=== PATIENT | female | born 2000 | race Caucasian/White ===

== ENCOUNTER 2023-10-30 18:22 | Observation (INO) | payer OTHER, SELFPAY ==
[2023-10-30 15:39] VITALS: BP 116/71
[2023-10-30 16:04] LABS: % Basophils 0.4 % (0-2); % Eosinophils 2.5 % (0-6); % Immature Granulocytes 0.6 % (0-0.5); % Lymphocytes 15.6 % (20.5-51.1); % Monocytes 6.8 % (1.7-9.3); % Neutrophils 74.1 % (42.2-75.2); Absolute Eosinophils 0.2 10^3/uL (0-0.7); Absolute Immature Granulocytes 0.1 10^3/uL (0-0.05); Absolute Lymphocytes 1.2 10^3/uL (1.2-3.4); Absolute Monocytes 0.5 10^3/uL (0.1-0.6); Absolute Neutrophils 5.9 10^3/uL (1.4-6.5); Hemoglobin 11.9 g/dL (12.0-16.0); Mean Corpuscular Hgb 28.7 pg (27.0-31.0); Mean Corpuscular Volume 84.5 fL (81.0-99.0); Mean Platelet Volume 10.7 fL (7.4-10.4); Nucleated Red Blood Cells % 0 %; Platelet Count 194 10^3/uL (130-400); Red Blood Cell Count 4.14 10^6/uL (4.20-5.40); Red Cell Dist. Width 18.7 % (11.5-14.5)
[2023-10-30 16:17] LABS: ALT (SGPT) < 10 U/L (0-35); AST (SGOT) 17 U/L (14-36); Albumin 3.2 g/dl (3.5-5.0); Alkaline Phosphatase 98 U/L (38-126); Blood Urea Nitrogen 8 mg/dl (7-17); Calcium 8.9 mg/dl (8.4-10.2); Carbon Dioxide 24 mmol/L (22-30); Chloride 107 mmol/L (98-107); Glucose 123 mg/dl (70-99); Potassium 4.1 mmol/L (3.5-5.1); Sodium 136 mmol/L (135-145); Total Bilirubin 0.3 mg/dl (0.2-1.3); Total Protein 6.3 g/dl (6.3-8.2); eGFR > 60.00
[2023-10-30 17:35] VITALS: BP 111/75
[2023-10-30 17:46] LABS: Lipase 105 U/L (23-300)
--- NOTE | 2023-10-30 18:11 | ED.GENMED ---
History of Present Illness
General
Chief Complaint: Breathing Problem
Source: patient
Exam Limitations: none
Time Seen by Provider: 10/30/23 18:02
Travel History
Have you had any contact with someone who has COVID-19?: No
Do you have any symptoms of coronavirus? Fever > 100 degrees, chills, cough, shortness of breath, sore throat, loss of taste or smell, muscle aches, or headache?: No
History of Present Illness
History of Present Illness:
See MDM
Past History
Past History
ED Past Medical History: None
ED Past Surgical History: None
Social History
Tobacco: Non-smoker
Alcohol: None
Drug: None
Personal:
Living: with family
Phy Exam
Physical Exam
Physical Exam:
See MDM
Course
Orders/Labs/Results
Orders:
Orders
10/30/23 15:45
Electrocardiogram (*1) Urgent
Reason for Study: Chest Pain
EKG- Treatment ONCE
10/30/23 15:53
Complete Blood Count/With Diff Urgent
Comprehensive Metabolic Panel Urgent
Lipase Urgent
Comment: ADD ON
10/30/23 17:01
Add On- LAB Urgent
Tests Added?: lipase
10/30/23 17:24
CR Chest - 2 Views Urgent
Comment:
Reason For Exam: sob
Abnormal Lab Results
10/30/23
15:53
RBC 4.14 L 10^6/uL
(4.20-5.40)
Hgb 11.9 L g/dL
(12.0-16.0)
Hct 35.0 L %
(37.0-47.0)
RDW 18.7 H %
(11.5-14.5)
MPV 10.7 H fL
(7.4-10.4)
Abs Immat Gran (auto) 0.1 H 10^3/uL
(0-0.05)
Immature Gran % 0.6 H %
(0-0.5)
Lymphocytes % 15.6 L %
(20.5-51.1)
Creatinine 0.5 L mg/dL
(0.6-1.0)
Glucose 123 H mg/dl
(70-99)
Albumin 3.2 L g/dl
(3.5-5.0)
10/30/23 15:53
10/30/23 15:53
Vital Signs
Initial and Last Documented VS:
Initial Vital Signs
Temp Pulse Resp BP Pulse Ox
98.4 F 108 20 116/71 100
10/30/23 15:39 10/30/23 15:39 10/30/23 15:39 10/30/23 15:39 10/30/23 15:39
Last Documented Vital Signs
Temp Pulse Resp BP Pulse Ox
98.4 F 96 18 111/75 100
10/30/23 15:39 10/30/23 17:35 10/30/23 17:35 10/30/23 17:35 10/30/23 17:35
MDM/Problems Addressed
Differential Diagnosis Includes:
HPI and MDM Narrative:
23-year-old female at 32 weeks gestation is presenting with shortness of breath. Her is translating and states this has been ongoing for a few months. She has a mild cough but it is not productive. No fevers. No leg swelling.
Patient is now complaining of abdominal cramping which is new today. She came into the emergency department for evaluation.
On exam, she does appear well-appearing and nontoxic. Blood work done prior to my evaluation shows no acute abnormalities. Chest x-ray performed showing no pneumonia or fluid. Given the abdominal cramping, will have monitoring performed in
labor and delivery
Physical exam
General: Well appearing and non-toxic
HEENT: protecting airway
Neck: appears supple
CV: No evidence of cyanosis. Regular rate and rhythm. Initial tachycardia in triage has resolved without intervention
Resp: No accessory muscle use. Lungs clear
Abd: Gravid abdomen. No tenderness
Extremities: No no unilateral leg edema or erythema
Neuro: alert
Psych: Normal affect
Skin: Intact
Problems Addressed including Acute and Chronic Conditions affecting care:
1. Shortness of breath
Acuity: acute
Prognosis: stable
Details: Lungs clear. Chest x-ray clear. Likely in the setting of third trimester with gravid abdomen
2. Abdominal cramping
Acuity: acute
Prognosis: stable
Details: Will have monitoring performed in labor and delivery
Updates
OB aware and will evaluate upstairs
Differential Diagnosis (but not limited to): Pneumonia, symptomatic anemia, pulmonary embolism
Testing considered: Ultrasound DVT rule out but no clinical signs of DVT
Drug therapy (if applicable): OTC meds, please see d/c instruction regarding Rx drugs
Amount and/or Complexity of Data Reviewed
Clinical info obtained from: Patient
External data reviewed: N/A
Labs I independently reviewed (but not limited to): Hemoglobin stable
Radiology: X-ray independently reviewed: Chest x-ray clear
Pulse Ox: not hypoxic
EKG independently reviewed: Sinus rhythm, normal axis, no STEMI
Turret Lathe Operator: N/A
Critical Care: N/A
Risk of Complication:
Social Determinants of health: Good social support
Discussed with other providers: DIRECTOR PHARMACOLOGY
Escalation of Care includes Admit/Obs: Given the abdominal cramping in third trimester, will have OB evaluate
Occasional wrong word or 'sound a like' substitutions may have occurred due to the inherent limitations of voice recognition software. Read the chart carefully and recognize, using context, where substitutions have occurred.
*Critical Care Note
Total Time (30-74mins, 75-104mins- exclusive of procedures): Not Applicable
ED Attending Note
-
Portions of this chart may have been created with voice recognition software.� Occasional wrong word or��sound alike� substitutions may have occurred due to the inherent limitations of voice recognition software.
Discharge Plan
Departure
Patient Disposition: LDRP
Date of Disposition: 10/30/23
Time of Disposition: 18:12
Presentation/result/management discussed w/ accepting MD/DO: DIRECTOR PHARMACOLOGY
Patient with high blood pressure during this ER visit?: No
Discharge Problem:
Abdominal cramping affecting
Prescriptions:
No Action
gabapentin 300 mg capsule
300 mg PO TID PRN (Reason: pain) Qty: 21 0RF
Interventions
Interventions:
*Risk Screen - Suicide Last Done: 10/30/23 15:39
*General Assessment Last Done: 10/30/23 15:39
*Neglect/Abuse Screening Last Done: 10/30/23 15:39
Discharge Date and Time
Print Language: MALIAN
[2023-10-30 18:49] VITALS: BP 101/63; BMI 28.7
== END 2023-10-30 20:30 | disposition home or self-care (01) ==
LOC: LDRP 18:22
PROVIDERS: ADMITTING PHYSICIAN Obstetrics & Gynecology; EMERGENCY PHYSICIAN Student in an Organized Health Care Education/Training Program
DX: R07.9 Chest pain, unspecified (principal); R10.9 Unspecified abdominal pain; Z3A.32 32 weeks gestation of pregnancy; R00.2 Palpitations; R06.02 Shortness of breath; R05.9 Cough, unspecified; Z60.3 Acculturation difficulty
CPT/HCPCS: 71046; 80053; 83690; 85025; 93005; 99285; G0378

== ENCOUNTER 2024-09-16 11:17 | Emergency (ER) | payer OTHER, SELFPAY ==
[2024-09-16 11:22] VITALS: BP 114/88
[2024-09-16 14:30] VITALS: BP 121/79
[2024-09-16 14:37] LABS: % Basophils 0.5 % (0-2); % Eosinophils 2.2 % (0-6); % Immature Granulocytes 0.2 % (0-0.5); % Lymphocytes 25.1 % (20.5-51.1); % Monocytes 5.7 % (1.7-9.3); % Neutrophils 66.3 % (42.2-75.2); Absolute Eosinophils 0.2 10^3/uL (0-0.7); Absolute Monocytes 0.5 10^3/uL (0.1-0.6); Absolute Neutrophils 5.3 10^3/uL (1.4-6.5); Hemoglobin 13.6 g/dL (12.0-16.0); Mean Corpuscular Hgb 30.2 pg (27.0-31.0); Mean Corpuscular Volume 88.9 fL (81.0-99.0); Mean Platelet Volume 10.1 fL (7.4-10.4); Nucleated Red Blood Cells % 0 %; Platelet Count 233 10^3/uL (130-400); White Blood Cell Count 8.1 10^3/uL (4.8-10.8)
[2024-09-16 14:51] LABS: ALT (SGPT) 17 U/L (0-35); AST (SGOT) 23 U/L (14-36); Albumin 4.4 g/dl (3.5-5.0); Alkaline Phosphatase 71 U/L (38-126); Blood Urea Nitrogen 13 mg/dl (7-17); Calcium 9.1 mg/dl (8.4-10.2); Carbon Dioxide 24 mmol/L (22-30); Chloride 104 mmol/L (98-107); Glucose 84 mg/dl (70-99); Potassium 4.3 mmol/L (3.5-5.1); Sodium 139 mmol/L (135-145); Total Bilirubin 0.6 mg/dl (0.2-1.3); Total Protein 7.4 g/dl (6.3-8.2); eGFR > 60.00
--- NOTE | 2024-09-16 14:59 | ED.GENMED ---
History of Present Illness
General
Chief Complaint: Headache
Time Seen by Provider: 09/16/24 13:09
History of Present Illness
History of Present Illness:
24-year-old female without significant past medical history presenting for daily headaches and palpitations. Patient notes that she has been have any symptoms since she was , now 8 months . Feels symptoms have been worsening in
the past 4 days. She saw And was prescribe something for her thyroid, and was told to take a medication for 3 days. She notes that the headache is constant. She also reports intermittent palpitations on today. She has been taking Tylenol for
headache. Does report some blurry vision when headache comes on. Denies fever. Denies weakness or numbness to her extremities. Denies migraine history. Denies injury or trauma. Denies additional medical complaints
Past History
Past History
ED Past Medical History: None
ED Past Surgical History: None
Social History
Tobacco: Non-smoker
Alcohol: None
Drug: None
Personal:
Living: with family
Phy Exam
Physical Exam
Physical Exam:
General: Well-appearing, no clinical signs of dehydration, nontoxic and in no acute distress
HEENT: protecting airway
Neck: appears supple
CV: Normal heart rate, regular rhythm
Resp: No accessory muscle use, no increased work of breathing, lungs clear to auscultation bilaterally
Abd: Soft and non-distended, no tenderness to palpation
Extremities: No deformities, no swelling, no erythema
Neuro: alert, no focal neurologic deficit
: deferred
Rectal: deferred
Psych: Normal affect
Skin: Intact
Course
Orders/Labs/Results
Orders:
Orders
09/16/24 11:18
ECG [Electrocardiogram (*1)] Urgent
Reason for Study: Palpitations
EKG- Treatment ONCE
09/16/24 14:23
CT Head W/o Iv Contrast Urgent
Comment:
Reason For Exam: migraines,
09/16/24 14:28
Complete Blood Count/With Diff Urgent
Comprehensive Metabolic Panel Urgent
Free T4 Urgent
TSH Reflex To Free T4 Urgent
Troponin I Urgent
09/16/24 15:00
Ketorolac [Toradol] 15 mg IM NOW STA
Abnormal Lab Results
09/16/24
14:28
TSH (Reflex) 5.76 H uIU/ml
(0.47-4.68)
09/16/24 14:28
09/16/24 14:28
Vital Signs
Initial and Last Documented VS:
Initial Vital Signs
Temp Pulse Resp BP Pulse Ox
97.8 F 95 18 114/88 98
09/16/24 11:22 09/16/24 11:22 09/16/24 11:22 09/16/24 11:22 09/16/24 11:22
Last Documented Vital Signs
Temp Pulse Resp BP Pulse Ox
97.8 F 95 18 121/79 100
09/16/24 11:22 09/16/24 11:22 09/16/24 11:22 09/16/24 14:30 09/16/24 14:32
MDM/Problems Addressed
MDM/Problems Addressed:
24-year-old female presenting for palpitations and headache. Vital signs are normal.
On exam patient is resting comfortably, no acute distress or discomfort. Regarding palpitations, EKG obtained on arrival, sinus rhythm without any arrhythmia or ischemic abnormality. Patient without any risk factors, without concern for ACS.
Patient is PERC negative without concern for PE. Regarding her headache, suspect tension versus migrainous headache. No concern for infectious etiology, afebrile, no meningeal signs. No focal neurologic deficits on exam or concern for acute
central neurologic process. No report of trauma or concern for any acute traumatic intracranial abnormality. No tenderness to the temporal arteries, without concern for temporal arteritis. Given duration of symptoms however, will obtain CT head.
Toradol administered for pain.
*EKG
Interpreted by ED Provider?: Yes
EKG Intrepretation Date: 09/16/24
EKG Intrepretation Time: 15:06
Interpretation: normal
Comparison EKG: no comparison EKG present
Heart Rate: 88
Rate: normal
Rhythm: sinus
[place]: normal axis
Interval: normal interval
QRS Pattern: normal QRS
Ischemia: no ischemia
*Critical Care Note
Total Time (30-74mins, 75-104mins- exclusive of procedures): Not Applicable
ED Attending Note
-
Portions of this chart may have been created with voice recognition software.� Occasional wrong word or��sound alike� substitutions may have occurred due to the inherent limitations of voice recognition software.
Discharge Plan
Departure
Patient with high blood pressure during this ER visit?: No
Condition: Good
Discharge Problem:
Migraine, Heart palpitations
Instructions: Headache, Adult (DC), Migraines (DC), Palpitations - ED discharge instructions
Referrals:
UNKNOWN - PT DOES,NOT KNOW [Family Provider] -
Bakari Murguia MD [Consulting Staff] -
Activity Restrictions/Additional Instructions:
You were seen in the emergency department for headache and palpitations
You were found to have a low thyroid level which could be contributing to your symptoms. Please follow-up with the licensed electrician. Your other blood work, EKG, CT brain imaging was within normal limits.
Please follow-up closely with your primary care physician.
Return to the emergency department for any worsening of your symptoms, or any development of chest pain, difficulty breathing, abdominal pain with persistent vomiting and inability to tolerate food or liquid by mouth (concern for dehydration),
weakness, headache or confusion, fever greater than 100.4, or any additional symptoms that are concerning to you.
Thank you for choosing [facility].
Interventions
Interventions:
*Risk Screen - Suicide Last Done: 09/16/24 14:28
*General Assessment Last Done: 09/16/24 11:22
*Neglect/Abuse Screening Last Done: 09/16/24 14:28
*ED- Fall Risk Assessment Last Done: 09/16/24 14:28
*ED COVID-19 Vaccine History Last Done: 09/16/24 14:28
ED- Neurological Assessment Last Done: 09/16/24 14:29
Discharge Date and Time
Print Language: GREENLANDIC
[2024-09-16 15:01] LABS: Troponin I < 0.012 ng/ml
[2024-09-16 15:20] LABS: TSH Reflex To Free T4 5.76 uIU/ml (0.47-4.68)
[2024-09-16 16:00] VITALS: BP 101/53
[2024-09-16 16:10] LABS: Free T4 1.17 ng/dl (0.78-2.19)
[2024-09-16 16:38] VITALS: BP 116/73
== END 2024-09-16 18:07 | disposition home or self-care (01) ==
LOC: EMR 11:17
PROVIDERS: EMERGENCY PHYSICIAN Student in an Organized Health Care Education/Training Program
DX: G43.909 Migraine, unspecified, not intractable, without status migrainosus (principal); R00.2 Palpitations
CPT/HCPCS: 96372; 99284; 70450; 80053; 84439; 84443; 84484; 85025; 93005